=== PATIENT | female | born 1960 | race Caucasian/White ===

== ENCOUNTER → 2016-08-28 | Outpatient (CLI) | payer SELFPAY ==
--- NOTE | 2016-08-29 11:31 | RAD ---
EXAM DESCRIPTION: Foot,Right 3 Views CLINICAL HISTORY: 56 years Female, RIGHT FOOT PAIN IMPRESSION: 3 views of the right foot demonstrates no evidence of fracture or osseous lesion. Plantar spur noted. Electronically signed by: Ilir Wakefield MD 08/29/2016 11:30 AM CDT
== END ==
LOC: RAD 16:17
PROVIDERS: ATTEND Family Medicine
DX: M79.671 Pain in right foot (principal); M77.8 Other enthesopathies, not elsewhere classified

== ENCOUNTER → 2016-09-09 | Outpatient (CLI) | payer SELFPAY ==
--- NOTE | 2016-09-10 06:05 | MRI ---
Procedure: MR PELVIS WITHOUT IV CONTRAST Exam Date: 09/09/2016 11:13 AM CDT Ordering Provider: ANDREA GRUBER Clinical Indication: Bilateral hip pain Comparison: None Technique: Multiplanar MRI of the pelvis was obtained without the administration of intravenous contrast. Findings: There is no acute fracture. There is no subluxation or dislocation. The articular cartilage of each hip is normal. The sacroiliac joints have a normal appearance bilaterally. There is no lytic or sclerotic lesion. There are no pelvic masses. There are no inflammatory changes in the pelvis. IMPRESSION: 1. Negative MRI of the pelvis. Electronically signed by: Alon Veliz MD 09/10/2016 6:04 AM CDT
--- NOTE | 2016-09-10 06:18 | MRI ---
Study: MRI of the left foot without contrast. Exam Date: 09/09/2016 11:13 AM CDT Clinical indication: Left foot pain Technique: Multiplanar, multisequence MR images of the left foot were obtained without contrast on a high-field magnet. Comparisons: None Findings: Bone marrow edema seen within the medial facet of the talus as well as the medial talar dome. There is associated cartilage loss noted, however the more inferior and medial bone marrow edema may be secondary to osseous contusion. There is no anterior or posterior subtalar joint cartilage loss appreciated. Sinus Tarsi is preserved. Otherwise, the remainder of the marrow signal is within normal limits without fracture or subluxation. No infiltrative or infectious appearing marrow process. Medial flexor tendons, extensor tendons, and peroneal tendons are intact. Achilles tendon and plantar fascia are normal. Small os tibialis externum type I noted. No soft tissue fluid collections or masses seen. No intermetatarsal bursitis or masses to suggest Musa trauma. No definite plantar plate injury. Lisfranc ligament is intact, and MTP joints are without significant degenerative change. No joint effusions or significant synovitis appreciated. Impression: 1. Medial talar dome osteochondral defect with overlying cartilage loss. There is bone marrow edema seen within the medial facet of the talus which may be secondary to osseous contusion. No definite fractures or subluxations. 2. Otherwise, unremarkable MRI of the left foot. Electronically signed by: Alon Veliz MD 09/10/2016 6:18 AM CDT
--- NOTE | 2016-09-10 06:20 | MRI ---
Study: MRI of the right foot without contrast. Exam Date: 09/09/2016 11:13 AM CDT Clinical indication: Right foot pain Technique: Multiplanar, multisequence MR images of the right foot were obtained without contrast on a high-field magnet. Comparisons: None Findings: Marrow signal is within normal limits without evidence of fracture or infectious/inflammatory marrow process. No malalignment is appreciated. Mild plantar calcaneal heel spur as well as Achilles calcaneal heel spur. However, no evidence of acute plantar fasciitis or Achilles tendinopathy. No soft tissue fluid collections or masses seen. No intermetatarsal bursitis or masses to suggest Musa trauma. No definite plantar plate injury. Lisfranc ligament is intact, and MTP joints are without significant degenerative change. No joint effusions or significant synovitis appreciated. Impression: Mild plantar and Achilles calcaneal heel spurs without evidence of acute plantar fasciitis or Achilles tendinosis. Otherwise, unremarkable MRI of the right foot without contrast. Electronically signed by: Alon Veliz MD 09/10/2016 6:20 AM CDT
--- NOTE | 2016-09-10 10:19 | RAD ---
EXAM DESCRIPTION: Hip,Left 2 Views CLINICAL HISTORY: 56 years Female, HIP PAIN IMPRESSION: 2 views of the left hip reveal no evidence of degenerative change, osseous lesion or fracture at this time. Comparison was made to October 2012. Electronically signed by: Ilir Wakeifeld MD 09/10/2016 10:18 AM CDT
== END | disposition home or self-care (01) ==
LOC: MRI 10:44
PROVIDERS: ATTEND Family Medicine
DX: M25.559 Pain in unspecified hip (principal); R10.2 Pelvic and perineal pain

== ENCOUNTER → 2017-07-23 | Outpatient (CLI) | payer BC ==
--- NOTE | 2017-07-24 14:20 | RAD ---
EXAM DESCRIPTION: Hip,Left 2 Views CLINICAL HISTORY: 57 years, Female, PAIN COMPARISON: None TECHNIQUE: AP and frog leg lateral views of the left hip FINDINGS: 2 views of the left hip reveal no fracture or dislocation. No lytic bone lesion. Minimal spurring at the medial femoral head neck junction. Bones of the left hemipelvis are intact. Lower left sacrum appears normal. There is no joint space abnormality observed. IMPRESSION: Negative for fracture or dislocation. Electronically signed by: Andre Pino MD 07/24/2017 2:17 PM CDT
--- NOTE | 2017-07-24 14:21 | RAD ---
EXAM DESCRIPTION: Knee,Left Complete CLINICAL HISTORY: 57 years, Female, PAIN COMPARISON: None TECHNIQUE: Three views of the knee FINDINGS: No fracture or dislocation. Bones appear normally mineralized with normal trabecular pattern. Normal appearance of medial and lateral compartments on frontal view. Lateral view shows normal position of the patella. Mild superior patellar spurring. No suprapatellar knee joint effusion. Normal contour of quadriceps and patellar tendons. No abnormal patellar tilt or subluxation on patellar sunrise view. IMPRESSION: Negative for fracture or dislocation. Electronically signed by: Andre Pino MD 07/24/2017 2:18 PM CDT
== END ==
LOC: RAD 16:33
PROVIDERS: ATTEND Orthopaedic Surgery
DX: M25.552 Pain in left hip (principal); M25.561 Pain in right knee

== ENCOUNTER → 2017-09-03 | Outpatient (CLI) | payer BC | LOC: LAB.O 09:36 | PROVIDERS: ATTEND Family Medicine | DX: I10 Essential (primary) hypertension (principal); E03.9 Hypothyroidism, unspecified; R53.82 Chronic fatigue, unspecified ==

== ENCOUNTER → 2018-05-24 | Outpatient (CLI) | payer OTHER ==
--- NOTE | 2018-05-24 10:27 | RAD ---
EXAM DESCRIPTION: Shoulder,Left 2 or More Views CLINICAL HISTORY: M25.512 left shoulder pain COMPARISON: None. IMPRESSION: 4 views of the left shoulder show no acute fracture, focal bone destruction, or joint dislocation. Tiny left cervical rib at C7 is seen. Electronically signed by: Mihir Jacobo MD 05/24/2018 10:26 AM [facility]
--- NOTE | 2018-05-24 10:46 | RAD ---
EXAM DESCRIPTION: Pelvis (accession [id number]), Hip,Left 2 Views (accession [id number]) CLINICAL HISTORY: 58 years Female, HIP PAIN COMPARISON: Left hip radiographs 07/23/2017, 09/09/2016 TECHNIQUE: 2 views of the left hip. Single view of the pelvis IMPRESSION: Sacrum and coccyx are partially obscured by overlying bowel. No acute displaced fracture. No dislocation. Mild osteophytic change of the hip joints as evident by joint space narrowing and minimal underlying subchondral sclerosis along the acetabular roofs. SI joints and pubic joint are intact. Electronically signed by: Harjeet Taylor MD 05/24/2018 10:45 AM [facility]
--- NOTE | 2018-05-24 10:46 | RAD ---
EXAM DESCRIPTION: Pelvis (accession [id number]), Hip,Left 2 Views (accession [id number]) CLINICAL HISTORY: 58 years Female, HIP PAIN COMPARISON: Left hip radiographs 07/23/2017, 09/09/2016 TECHNIQUE: 2 views of the left hip. Single view of the pelvis IMPRESSION: Sacrum and coccyx are partially obscured by overlying bowel. No acute displaced fracture. No dislocation. Mild osteophytic change of the hip joints as evident by joint space narrowing and minimal underlying subchondral sclerosis along the acetabular roofs. SI joints and pubic joint are intact. Electronically signed by: Harjeet Taylor MD 05/24/2018 10:45 AM [facility]
== END ==
LOC: RAD 08:49
PROVIDERS: ATTEND Orthopaedic Surgery
DX: Z00.00 Encounter for general adult medical examination without abnormal findings (principal); M25.552 Pain in left hip; I10 Essential (primary) hypertension; N39.0 Urinary tract infection, site not specified

== ENCOUNTER 2018-06-14 20:02 | Emergency (ER) | payer SELFPAY ==
[2018-06-14 21:37] VITALS: O2SAT 98
[2018-06-14] MEDS ORDERED: ONDANSETRON INJ 4 MG/2 ML VIAL IV ONE (22:04)
[2018-06-14] MEDS ORDERED: MORPHINE SULFATE INJ 10 MG/ML VIAL IV ONE (22:04)
--- NOTE | 2018-06-14 22:07 | ED.PDOC ---
History of Present Illness - General Chief Complaint: Abdominal Pain Stated Complaint: Rt lower abd pain Time Seen by Provider: 06/14/18 22:02 Information Source: patient Exam Limitations: no limitations - History of Present Illness Initial Comments: SHE VOICES THAT SHE HAS HAD A LOW GRADE FEVER FOR THE PAST 6 WEEKS. TODAY IN THE AM SHE HAD ACUTE ONSET OF RLQ PAIN, SEVERE ASSOCIATED WITH NAUSEA. SHE HAS HAD AN APPENDECTOMY AND HYSTERECTOMY IN THE PAST. DENIES ANY DIARRHEA OR CONSTIPATION. Abdominal Pain Onset Location: RLQ Pain Radiation: flank, back Quality: severe Timing/Duration: 7-24 hours Improving Factors: nothing Worsening Factors: nothing Associated Symptoms: denies symptoms Review of Systems - Review of Systems Constitutional: States: weakness EENTM: States: no symptoms reported Respiratory: States: no symptoms reported Cardiology: States: no symptoms reported Gastrointestinal/Abdominal: States: abdominal pain, nausea Genitourinary: States: dysuria Musculoskeletal: States: no symptoms reported Skin: States: no symptoms reported Neurological: States: no symptoms reported Endocrine: States: no symptoms reported Hematologic/Lymphatic: States: no symptoms reported Past Medical History (General) - Patient Medical History Hx Congestive Heart Failure: No Hx Hypertension: Yes Hx Diabetes: No Surgical History: appendectomy, Hysterectomy - Female History Patient is a Female of Child Bearing Age (10 -59 yrs old): No Family Medical History - Family History Father Family History: Unknown Physical Exam - Physical Exam General Appearance: Alert, Obvious distress, Ill Appearing, Well Developed, Well Groomed, Well Hydrated, Well Nourished Eyes, Ears, Nose, Throat Exam: PERRL/EOMI, pharynx normal Neck: non-tender, normal inspection Respiratory: chest non-tender, normal breath sounds, no accessory muscle use Cardiovascular/Chest: normal peripheral pulses, no edema, no murmur Gastrointestinal/Abdominal: normal bowel sounds, non tender, no organomegaly, no pulsatile mass, other - EXQUISTE TENDERNESS ON THE RLQ Progress - Results/Orders Results/Orders: 06/14/18 22:02 LIPASE Stat 06/14/18 22:03 Hold Metformin x 48Hrs [id number] Laboratory Results WBC 12.5 K/mm3 (4.8-10.8) H 06/14/18 21:44 RBC 4.86 M/mm3 (4.20-5.40) 06/14/18 21:44 Hgb 14.3 gm/dL (12.0-16.0) 06/14/18 21:44 Hct 42.3 % (36.0-47.0) 06/14/18 21:44 MCV 87.2 fl (81.0-99.0) 06/14/18 21:44 MCH 29.5 pg (27.0-31.0) 06/14/18 21:44 MCHC 33.9 g/dL (33.0-37.0) 06/14/18 21:44 RDW 12.9 % (11.5-14.5) 06/14/18 21:44 Plt Count 295 K/mm3 (130-400) 06/14/18 21:44 MPV 7.2 fl (7.40-10.4) L 06/14/18 21:44 Absolute Neuts (auto) 9.10 K/uL (1.8-6.8) H 06/14/18 21:44 Absolute Lymphs (auto) 2.20 K/uL (1.0-3.4) 06/14/18 21:44 Absolute Monos (auto) 0.70 K/uL (0.2-0.8) 06/14/18 21:44 Absolute Eos (auto) 0.40 K/uL (0.0-0.4) 06/14/18 21:44 Absolute Basos (auto) 0.10 K/uL (0.0-0.1) 06/14/18 21:44 Neutrophils % 72.9 % (42.0-78.0) 06/14/18 21:44 Lymphocytes % 17.3 % (20.0-50.0) L 06/14/18 21:44 Monocytes % 5.8 % (2.0-9.0) 06/14/18 21:44 Eosinophils % 2.9 % (1.0-5.0) 06/14/18 21:44 Basophils % 1.1 % (0.0-2.0) 06/14/18 21:44 Sodium 139 mmol/L (135-145) 06/14/18 21:44 Potassium 3.8 mmol/L (3.6-5.0) 06/14/18 21:44 Chloride 103 mmol/L (101-111) 06/14/18 21:44 Carbon Dioxide 25 mmol/L (21-31) 06/14/18 21:44 Anion Gap 14.8 (12-18) 06/14/18 21:44 BUN 12 mg/dL (7-18) 06/14/18 21:44 Creatinine 1.03 mg/dL (0.6-1.3) 06/14/18 21:44 BUN/Creatinine Ratio 11.7 (10-20) 06/14/18 21:44 Random Glucose 146 mg/dL (70-105) H 06/14/18 21:44 Serum Osmolality 279.9 mOsm/L (275-295) 06/14/18 21:44 Calcium 9.2 mg/dL (8.4-10.2) 06/14/18 21:44 Total Bilirubin 0.3 mg/dL (0.2-1.0) 06/14/18 21:44 AST 22 IU/L (10-42) 06/14/18 21:44 ALT 19 IU/L (10-60) 06/14/18 21:44 Alkaline Phosphatase 107 IU/L (42-121) 06/14/18 21:44 Serum Total Protein 7.4 gm/dL (6.4-8.2) 06/14/18 21:44 Albumin 4.0 g/dl (3.2-5.5) 06/14/18 21:44 Globulin 3.4 gm/dL (2.3-3.5) 06/14/18 21:44 Albumin/Globulin Ratio 1.2 (1.1-1.9) 06/14/18 21:44 Urine Color Yellow (Yellow) 06/14/18 22:08 Urine Appearance Clear (Clear) 06/14/18 22:08 Urine pH 6.0 (4.5-7.8) 06/14/18 22:08 Ur Specific Shanks 1.025 (1.005-1.030) 06/14/18 22:08 Urine Protein >=300 mg/dL H 06/14/18 22:08 Urine Glucose (UA) Negative mg/dL (Negative) 06/14/18 22:08 Urine Ketones Trace mg/dL (NEGATIVE) 06/14/18 22:08 Urine Blood Small (Negative) H 06/14/18 22:08 Urine Nitrite Negative 06/14/18 22:08 Urine Bilirubin Negative (NEGATIVE) 06/14/18 22:08 Urine Urobilinogen 0.2 mg/dL (0.2-1.0) 06/14/18 22:08 Ur Leukocyte Esterase Negative (Negative) 06/14/18 22:08 Urine RBC 5-10 /hpf H 06/14/18 22:08 Urine WBC 1-3 /hpf 06/14/18 22:08 Ur Epithelial Cells 3-5 /hpf 06/14/18 22:08 Ur Squamous Epith Cells Sales Vendor 06/14/18 22:08 Ur Transition Epith Cell Sales Vendor 06/14/18 22:08 Ur Renal Epithelial Cell Sales Vendor 06/14/18 22:08 Calcium Oxalate Crystal Sales Vendor 06/14/18 22:08 Uric Acid Crystals Sales Vendor 06/14/18 22:08 Triple Phos Crystals Sales Vendor 06/14/18 22:08 Other Crystals Sales Vendor 06/14/18 22:08 Amorphous Sediment Sales Vendor 06/14/18 22:08 Urine Bacteria Rare 06/14/18 22:08 Hyaline Casts Sales Vendor 06/14/18 22:08 Fine Granular Casts Sales Vendor 06/14/18 22:08 Coarse Granular Casts Sales Vendor 06/14/18 22:08 Waxy Casts Sales Vendor 06/14/18 22:08 RBC Casts Sales Vendor 06/14/18 22:08 WBC Casts Sales Vendor 06/14/18 22:08 Other Casts Sales Vendor 06/14/18 22:08 Urine Mucus Sales Vendor 06/14/18 22:08 Urine Other Sales Vendor 06/14/18 22:08 Urine Trichomonas Sales Vendor 06/14/18 22:08 Urine Yeast Sales Vendor 06/14/18 22:08 Urine Sperm Sales Vendor 06/14/18 22:08 Ur Oval Fat Bodies Sales Vendor 06/14/18 22:08 CT ABDOMEN IS CONSISTENT WITH RIGHT DISTAL URETERITIS THE PATIENT SHOULD F/U WITH DR. GRUBER AND ALSO F/U WITH A UROLOGIST OF CHOICE. SHE VOICES THAT SHE HAS SEEN ONE IN [facility]. Departure - Departure Clinical Impression: Ureteritis Time of Disposition: 23:19 Disposition: Discharge to Home or Self Care Condition: Good Departure Forms: ED Discharge - Pt. Copy, Patient Portal Self Enrollment Instructions: DI for Abdominal Pain-Adult Referrals: ANDREA GRUBER [Primary Care Provider] - 1-2 Weeks Prescriptions: Tramadol HCl 50 mg PO Q6HRS #20 tab Ciprofloxacin [Cipro] 500 mg PO BID #20 tab Home Medications: Ambulatory Orders Estradiol [Estrace] 0.5 mg PO 03/29/13 Lisinopril 10 mg PO 03/29/13 Famotidine [Pepcid] 20 mg PO AM 03/30/13 Ciprofloxacin [Cipro] 500 mg PO BID #20 tab 06/14/18 Tramadol HCl 50 mg PO Q6HRS #20 tab 06/14/18
--- NOTE | 2018-06-14 23:00 | CT ---
EXAM DESCRIPTION: Abdomen/Pelvis w/Contrast CLINICAL HISTORY:58 years Female, RLQ PAIN (HAS HAD APPY IN THE PAST) Comparison: None TECHNIQUE: Contiguous axial images of the abdomen and pelvis were obtained followed by reconstruction images. This exam was performed according to our departmental dose-optimization program, which includes automated exposure control, adjustment of the mA and/or kV according to patient size and/or use of iterative reconstruction technique. FINDINGS: Lung bases: Lung bases are clear. Heart: Visualized heart is within normal limits in size. Liver:Unremarkable. No focal liver lesion. Gallbladder:Unremarkable. No gallstones. No gallbladder wall thickening or pericholecystic fluid. Spleen:Unremarkable Pancreas: Pancreas is unremarkable. Adrenal glands:Within normal limits. Kidneys/ureters:Left renal subcentimeter hypodensity likely cysts. No suspicious renal lesion. No hydronephrosis. Asymmetric right ureteral enhancement and periureteral stranding more pronounced distally. No ureteral calculus seen. No hydronephrosis. Bladder:Mild bladder wall thickening Pelvic organs: Hysterectomy. No pelvic mass lesion Vascular structures: Scattered atherosclerotic calcifications. Multiple venous phleboliths noted. Peritoneum: No free fluid. Lymph nodes: No abnormal lymph nodes. Stomach/small bowel/colon: Stomach is unremarkable. Small bowel is unremarkable. Colon is unremarkable. Appendix: not seen may be surgically absent. Bones: No acute osseous abnormality. Soft tissues: Unremarkable.. IMPRESSION: * Asymmetric right ureteral enhancement and periureteral stranding more pronounced distally. No ureteral calculus seen. No hydronephrosis. Findings suspicious for nonspecific ureteritis/ infection. Correlate with urinalysis. Follow-up CT urogram may be obtained. * Additional mild bladder wall thickening suspicious for cystitis. Electronically signed by: Omer Morrell MD 06/14/2018 10:57 PM INTERNATIONAL LOGISTICS ANALYST
[2018-06-14] MEDS ORDERED: HYDROmorphone HCL INJ 2 MG/ML VIAL IV ONE (23:17)
[2018-06-14] MEDS ORDERED: cefTRIAXone SODIUM 1 GM in SODIUM CHL 0.9% 50ML MIN-BAG+ 50 ML IVPB ONE (23:18)
[2018-06-15] MEDS ORDERED: cefTRIAXone SODIUM 1 GM VIAL ONE (00:02)
[2018-06-15] MEDS ORDERED: SODIUM CHL 0.9% 50ML MIN-BAG+ 50 ML IVPB ONE (00:03)
[2018-06-15 00:55] VITALS: BP 162/84; TEMP 98.1
== END 2018-06-15 00:55 | disposition home or self-care (01) ==
LOC: ER 20:02
DX: N28.89 Other specified disorders of kidney and ureter (principal); I10 Essential (primary) hypertension; Z90.49 Acquired absence of other specified parts of digestive tract; Z90.710 Acquired absence of both cervix and uterus
CPT/HCPCS: 36415; 74177; 80053; 81001; 83690; 85025; J0696; J1170; J2270; J2405; J7050

== ENCOUNTER → 2019-03-16 | Outpatient (CLI) | payer OTHER ==
--- NOTE | 2019-03-16 20:46 | US ---
EXAM DESCRIPTION: Soft Tissue,Extremity: ULTRASOUND. CLINICAL HISTORY: 59 years Female SWELLING MASS RT UPPER ARM COMPARISON: None Available. TECHNIQUE: Transcutaneous scanning: Henderson-scale and Doppler modes. FINDINGS: Scanning of the right shoulder were with palpable mass and skin scar. Tissue with no definite well-defined borders and different echogenicities. No fluid or calcification. Minimal acoustic enhancement without shadowing. Wider than tall orientation. Measurements are approximately 1.4 x 1.6 x 0.7 cm. Echogenic structure on the right side of the neck is palpable is circumscribed wider than tall orientation could represent a lymph node or a small lipoma 5 mm longest axis. Anterior right arm subcutaneous circumscribed hypoechoic structure measures 6.9 x 4.7 x 1.4 mm. Hypoechoic, wider than tall orientation, and circumscribed margins. Most likely a lipoma. Similar appearing structure mid right arm anteriorly measuring 8.0 x 6.8 x 2.3 mm also consistent with a lipoma with no posterior echogenic features, circumscribed margin, wider than tall orientation. IMPRESSION: 1. Palpable mass on the shoulder most likely related to scar tissue and fibrosis. No defined margins, mixed echogenicity without fluid and no acoustic shadowing. If enlarges or becomes more painful, consider MRI scan without and with gadolinium IV contrast. 2. Other palpable lesions are consistent with lipoma. One lesion could represent lymph node or lipoma. Electronically signed by: Dilshad Montero MD 03/16/2019 8:45 PM PUBLIC HEALTH INSPECTOR
== END | disposition home or self-care (01) ==
LOC: US 08:35
PROVIDERS: ATTEND Family Medicine
DX: R22.31 Localized swelling, mass and lump, right upper limb (principal)

== ENCOUNTER → 2019-08-23 | Outpatient (CLI) | payer OTHER | LOC: LAB.O 11:07 | PROVIDERS: ATTEND Family Medicine | DX: R50.9 Fever, unspecified (principal) ==

== ENCOUNTER → 2020-01-18 | Outpatient (CLI) | payer SELFPAY | LOC: LAB.NP 10:38 | PROVIDERS: ATTEND Family Medicine | DX: D80.3 Selective deficiency of immunoglobulin G [IgG] subclasses (principal) ==

== ENCOUNTER → 2020-02-13 | Outpatient (CLI) | payer SELFPAY | LOC: LAB.O 15:26 | PROVIDERS: ATTEND Internal Medicine Hematology & Oncology | DX: D80.1 Nonfamilial hypogammaglobulinemia (principal); D53.9 Nutritional anemia, unspecified; D50.9 Iron deficiency anemia, unspecified ==

== ENCOUNTER → 2020-02-15 | Outpatient (CLI) | payer SELFPAY ==
--- NOTE | 2020-02-15 22:35 | CT ---
EXAM: Abdomen/Pelvis w/Contrast (accession [id number]), Chest w/Contrast (accession [id number]) INDICATION: LYMPHADENOPATHY . COMPARISON: CT abdomen pelvis with contrast 06/14/2018, CT abdomen pelvis without contrast 08/05/2007 TECHNIQUE: CT of the chest, abdomen, and pelvis was performed following the administration of IV contrast. Multiple axial images and multiplanar reconstructions were generated. This exam was performed according to our departmental dose-optimization program, which includes automated exposure control, adjustment of the mA and/or kV according to patient size and/or use of iterative reconstruction technique. CHEST FINDINGS: Heart: Heart size is within normal limits. No pericardial effusion. Great vessels: The caliber of the main pulmonary artery is within normal limits. The caliber of the aorta is within normal limits. Mediastinum: No mediastinal lymphadenopathy. No mediastinal masses. Lungs: Scattered subsegmental atelectasis in the dependent portions of the lungs. No pulmonary infiltrate. No pleural effusion. No pneumothorax. Esophagus: Moderate hiatal hernia. Thyroid: Unremarkable appearance of the visualized portions of the thyroid gland. Bones: No acute fracture. No destructive osseous lesion. Degenerative changes in the spine. Body wall: Unremarkable appearance of the visualized soft tissues of the body wall. ABDOMEN PELVIS FINDINGS: Liver: Multiple low-density hepatic lesions are stable from the prior CT examination of 06/14/2018, including a 1.6 cm lesion in the left hepatic lobe (axial series 4 image 19), a 0.7 cm lesion in segment 4 of the left hepatic lobe (image 21), a 6 mm subcapsular lesion in the lateral right hepatic lobe (image 24), and a 5 mm lesion in the posterior right hepatic lobe (image 17). Focal fatty infiltration is noted at the falciform ligament. Gallbladder: A 2 mm rounded hyperdensity is noted at the nondependent wall of the gallbladder (axial series 4 image 25). Pancreas: Unremarkable appearance of the pancreas. Spleen: Unremarkable appearance of the spleen. Adrenal glands: Unremarkable appearance of the adrenal glands. Kidneys, ureters, bladder: Scarring in the upper pole of the right kidney. Stable 1 cm circumscribed intermediate density lesions in the midpole of the left kidney, most likely cysts. A dense calcification in the midpole of the left kidney has been stable since the CT examination of 08/05/2007, and appears to be within the parenchyma rather than the collecting system. No striated nephrograms or hydronephrosis. No obstructing renal stones. Unremarkable appearance of the visualized portions of the ureters. The urinary bladder is mostly collapsed. Stomach and bowel: Moderate hiatal hernia. Presumed food debris within a loop of nondilated small bowel in the left upper quadrant (axial series 4 images 26-28). No dilated loops of small bowel. Unremarkable appearance of the colon. The appendix is not identified although there are no focal inflammatory changes in the right lower quadrant to suggest appendicitis. Uterus and adnexa: The uterus is surgically absent. No adnexal mass. Peritoneum: No free fluid. No pneumoperitoneum. Lymph nodes: No lymphadenopathy. Vasculature: Moderate atherosclerosis in the abdomen and pelvis. Multiple phleboliths are noted. Bones: No acute fracture. No destructive osseous lesion. Scattered bone islands are noted in the hips and pelvis. Minimal degenerative change in the spine. Mild degenerative change in the hips. Body wall: Unremarkable appearance of the body wall and remainder of the visualized soft tissues. IMPRESSION: 1. Moderate hiatal hernia. 2. Multiple low-density hepatic lesions are stable from the prior CT of 06/14/2018. These most likely represent cysts or hemangiomata. 3. 2 mm rounded hyperdensity at the nondependent wall of the gallbladder. This is favored to represent an adherent stone, although the possibility of a polyp is not entirely excluded given its nondependent position. 4. 1 cm circumscribed intermediate density lesions in the midpole of the left kidney have been stable since the examination of 06/14/2018 and are favored to represent cysts, likely with some proteinaceous or hemorrhagic debris, given their intermediate density. Further evaluation can be performed with renal mass protocol MRI or CT. 5. Additional findings as described above. Electronically signed by: Rose Padilla MD 02/15/2020 10:34 PM CDT
--- NOTE | 2020-02-15 23:00 | CT ---
EXAM: Soft Tissue Neck w/Contrast INDICATION: LYMPHADENOPATHY COMPARISON: None available TECHNIQUE: CT of the neck soft tissues was performed following the administration of IV contrast. Multiple axial images and multiplanar reconstructions were generated. This exam was performed according to our departmental dose-optimization program, which includes automated exposure control, adjustment of the mA and/or kV according to patient size and/or use of iterative reconstruction technique. FINDINGS: Dense streak artifact from dental amalgam limits evaluation of closely surrounding soft tissues. No focal mucosal mass is identified in the visualized nasopharynx or posterior oropharynx, allowing for limitations in the exam technique and due to metallic streak artifact as discussed above. The vocal cords are closely apposed without apparent laryngeal mass. Unremarkable appearance of the parotid glands and submandibular glands. Unremarkable appearance of the thyroid gland. Retropharyngeal course of the internal carotid arteries is noted. Scattered small cervical lymph nodes are present bilaterally. No grossly enlarged cervical lymph nodes are identified. For reference, the most prominent lymph node is a left level 2/3 node measuring up to 0.9 x 0.6 x 1.0 (axial series 3 image 52 and sagittal series 604 image 71). Multilevel degenerative changes in the spine. Reversal of the normal cervical lordosis is likely related to patient positioning at the time of examination. No destructive osseous lesion is identified. Unremarkable appearance of the visualized globes and orbits. No acute abnormality is identified in the visualized portions of the brain. IMPRESSION: 1. No overt cervical lymphadenopathy. Scattered small cervical lymph nodes are present bilaterally, none of which appear significantly enlarged. The most prominent lymph node in the neck measures up to 1 cm, referenced above. 2. No suspicious mass is identified in the neck soft tissues. 3. Additional findings as discussed above. Electronically signed by: Rose Padilla MD 02/15/2020 10:58 PM CDT
== END ==
LOC: CT 08:11
PROVIDERS: ATTEND Internal Medicine Hematology & Oncology
DX: Z01.812 Encounter for preprocedural laboratory examination (principal); D80.1 Nonfamilial hypogammaglobulinemia; R59.9 Enlarged lymph nodes, unspecified; K44.9 Diaphragmatic hernia without obstruction or gangrene; K76.9 Liver disease, unspecified; K82.9 Disease of gallbladder, unspecified; N28.9 Disorder of kidney and ureter, unspecified; J98.11 Atelectasis; M47.9 Spondylosis, unspecified

== ENCOUNTER → 2020-04-30 | Outpatient (CLI) | payer SELFPAY | LOC: LAB.O 11:55 | PROVIDERS: ATTEND Internal Medicine Gastroenterology | DX: D50.0 Iron deficiency anemia secondary to blood loss (chronic) (principal) ==

== ENCOUNTER → 2020-05-09 | Outpatient (CLI) | payer OTHER ==
--- NOTE | 2020-05-09 11:22 | MAM ---
EXAM DESCRIPTION: 3D Screening BILATERAL : Digital Mammography. CLINICAL HISTORY: 60 years Female ANNUAL SCREENING . No complaints. Mother with breast cancer at age 40. Remote family history of breast cancer and ovarian cancer. Menarche age 13. Childbirth age 21. Menopause and hysterectomy age 25. Currently on HRT. Lifetime risk of developing breast cancer (Tyrer-Cuzick model)(%): 16.2. COMPARISON: Baseline study at this facility. No prior reports available. TECHNIQUE: Bilateral CC and MLO projection full-field images, digital tomosynthesis mammographic technique. Bilateral digital 2-D full-field MLO images. CAD available for 2-D images. FINDINGS: The breast parenchymal density pattern is: Scattered areas of fibroglandular density. Axillary nodes. Solitary microcalcifications. Vascular calcifications. Intramammary node in the right axillary tail. Focal asymmetry retroareolar right breast abutting the posterior nipple line and slightly medial, approximately 3 cm from the nipple. No skin thickening or nipple retraction No focal, stellate mass or density, focal asymmetry , and no suspicious microcalcifications left breast. IMPRESSION: BI-RADS CATEGORY: 0 - INCOMPLETE- Need additional imaging evaluation. RECOMMENDATIONS: FOLLOW-UP: Recall for additional imaging: Directed right breast ultrasound, region of interest. Optional diagnostic digital breast tomosynthesis, depending on ultrasound findings.. Written communication concerning the IMPRESSION and Follow-up, will be mailed to the patient and referring health care provider. Electronically signed by: Dilshad Montero MD 05/09/2020 11:21 AM [facility]
== END ==
LOC: MAMMO 08:40
PROVIDERS: ATTEND Family Medicine
DX: Z12.31 Encounter for screening mammogram for malignant neoplasm of breast (principal)

== ENCOUNTER → 2020-05-21 | Outpatient (CLI) | payer OTHER ==
--- NOTE | 2020-05-21 09:32 | US ---
EXAM DESCRIPTION: Breast,Right: Ultrasound. CLINICAL HISTORY: 60 yearsFemaleABNORMAL MAMMO. Focal asymmetry/architectural distortion right retroareolar breast. COMPARISON: Bilateral screening digital breast tomosynthesis May 09. TECHNIQUE: Transcutaneous scanning of the right breast utilizing olvera-scale and Doppler modes. Scanning performed by the trip follower ; observation by Dr. Montero. FINDINGS: Retroareolar breast is a mixture of fatty tissues anteriorly and deeper fibroglandular tissues. Small ducts are visible. No dominant solid mass, no distinct cyst, no parenchymal edema, no large calcifications. The overlying skin changes. IMPRESSION: Benign exam. BIRAD CATEGORY: 2 BENIGN FINDINGS. RECOMMENDATIONS: FOLLOW UP: Routine digital bilateral mammographic screening, one year interval from April 2020. Written communication explaining the IMPRESSION and follow-up, will be mailed to the patient and referring health care provider. According to the [employer], yearly mammograms are recommended starting at age 40 and continuing as long as a woman is in good health. Any breast change noted on a breast self-exam should be reported promptly to the patient's healthcare provider. Breast MRI is recommended for women with an approximately 20-25% or greater lifetime risk of breast cancer, including women with a strong family history of breast or ovarian cancer and women who have been treated for Hodgkin's disease. A negative mammographic report should not delay tissue diagnosis in patients with significant clinical history or physical findings. Extremely dense breast tissue limits the sensitivity of digital mammography. Electronically signed by: Dilshad Montero MD 05/21/2020 9:30 AM [facility]
== END ==
LOC: MAMMO 09:25
PROVIDERS: ATTEND Family Medicine
DX: R92.8 Other abnormal and inconclusive findings on diagnostic imaging of breast (principal)